=== PATIENT | female | born 2000 | race Caucasian/White ===

== ENCOUNTER 2021-08-24 14:34 | Emergency (ER) | payer MEDICAID ==
[2021-08-24] MEDS ORDERED: Sodium Chloride 0.9% 10 ML Syringe FLUSH PRN (14:59)
[2021-08-24] MEDS ORDERED: fentaNYL 100 MCG/2 ML SDV IVPUSH ONE ×2 (16:16→16:38)
--- NOTE | 2021-08-24 16:24 | CR ---
Left wrist: 3 views of the left wrist were obtained. Comparison: No prior wrist exam is available. Fracture is identified within the distal radius with mild comminution, articular extension as well as distal fragment being posteriorly angulated and posteriorly displaced. Fracture is also noted within the distal ulna. Diffuse soft tissue swelling is seen. Plate and screws are noted within the fifth metacarpal compatible with old injury. Impression: 1. Distal radial fracture showing articular extension and mildly comminuted with angulation and displacement. 2. Distal ulna fracture. 3. Other findings as noted above. Diagnostic code #3
[2021-08-24] MEDS ORDERED: Propofol 200 MG/20 ML SDV IVPUSH ONE (16:38)
[2021-08-24] MEDS ORDERED: Lactated Ringers 1,000 ML IV SCH (17:00)
--- NOTE | 2021-08-24 18:01 | EDM.PDOC ---
ED HPI GENERAL MEDICAL PROBLEM - General Chief Complaint: Upper Extremity Injury/Pain Stated Complaint: LEFT WRIST INJURY Time Seen by Provider: 08/24/21 16:14 - History of Present Illness INITIAL COMMENTS - FREE TEXT/NARRATIVE: 21-year-old female presents the emergency room with a left arm injury. Patient was stepping over on rope and tripped fell out on extended left upper extremity. She had immediate deformity to her wrist. This occurred roughly 2 hours prior to arrival. The patient complains of numbness in her hand and pretty significant discomfort when this incident. Patient denies any other injury associated with this most unfortunate event. Patient denies being she just had her period. Past medical history significant for cholecystectomy tonsillectomy adenoidectomy she has had left hand surgery and she has had a kidney stone. Left Wrist Pain Score (Numeric/FACES): 9 - Related Data Allergies Allergy/AdvReac Type Severity Reaction Status Date / Time Milk Containing Products AdvReac Nausea and Verified 08/24/21 16:09 Vomiting Home Meds: Home Meds Hydrocodone/Acetaminophen [HYDROcodone-Acetaminophen 5-325 MG] 1 - 2 each PO Q6H PRN #25 tab 08/24/21 [Rx] Past Medical History Genitourinary History: Reports: Renal Calculus Musculoskeletal History: Reports: Fracture Other Musculoskeletal History: to hand, - Past Surgical History HEENT Surgical History: Reports: Adenoidectomy, Tonsillectomy GI Surgical History: Reports: Cholecystectomy Musculoskeletal Surgical History: Reports: Other (See Below) Other Musculoskeletal Surgeries/Procedures:: surgery to left hand Social & Family History - Tobacco Use Tobacco Use Status *Q: Current Every Day Tobacco User Years of Tobacco use: 4 Packs/Tins Daily: 0.5 - Recreational Drug Use Recreational Drug Use: Yes Drug Use in Last 12 Months: Yes Recreational Drug Type: Reports: Marijuana/Hashish Recreational Drug Use Frequency: Daily Review of Systems - Review of Systems Review Of Systems: See Below Constitutional: Reports: No Symptoms Eyes: Reports: No Symptoms Ears: Reports: No Symptoms Nose: Reports: No Symptoms Mouth/Throat: Reports: No Symptoms Respiratory: Reports: No Symptoms Cardiovascular: Reports: No Symptoms GI/Abdominal: Reports: No Symptoms Genitourinary: Reports: No Symptoms Musculoskeletal: Reports: Arm Pain Skin: Reports: No Symptoms Neurological: Reports: No Symptoms ED EXAM, GENERAL - Physical Exam Exam: See Below Exam Limited By: No Limitations General Appearance: Alert, Moderate Distress (Mostly pain and a little anxiety) Head: Atraumatic, Normocephalic Neck: Normal Inspection, Supple, Non-Tender, Full Range of Motion Respiratory/Chest: No Respiratory Distress, Lungs Clear, Normal Breath Sounds Cardiovascular: Regular Rate, Rhythm, No Edema, No Murmur Extremities: Other (Patient has obvious dorsal angulation of the distal forearm. Her fingers are cool to touch and some numbness noted worse over the thumb and radial aspect compared to the ulnar aspect of the hand) Neurological: Alert, Oriented, Normal Cognition Course - Vital Signs Last Recorded V/S: Last Vital Signs Temp 36.4 C 08/24/21 15:37 Pulse 74 08/24/21 15:37 Resp 20 08/24/21 15:37 BP 104/89 08/24/21 15:37 Pulse Ox 98 08/24/21 15:37 - Orders/Labs/Meds Orders: Active Orders 24 hr Category Date Time Status Communication Order [RC] ASDIRECTED Care 08/24/21 14:59 Active Communication Order [RC] ASDIRECTED Care 08/24/21 14:59 Active Communication Order [RC] ROUTINE Care 08/24/21 14:59 Active Peripheral IV Care [RC] . DIRECTED Care 08/24/21 14:59 Active Wrist 2V Lt [CR] Stat Exams 08/24/21 17:18 Taken Lactated Ringers [Ringers, Lactated] 1,000 ml Med 08/24/21 17:00 Active IV ASDIRECTED Sodium Chloride 0.9% [Saline Flush] Med 08/24/21 14:59 Active 10 ml FLUSH ASDIRECTED PRN Durable Medical Equipment for Discharge [DME for Oth 08/24/21 18:01 Ordered Discharge] [COMM] Stat Peripheral IV Insertion Adult [OM.PC] Stat Oth 08/24/21 14:59 Ordered Medication Orders Lactated Ringer's (Ringers, Lactated) 1,000 mls @ 75 mls/hr IV ASDIRECTED LAUREL Last Admin: 08/24/21 17:21 Dose: 75 mls/hr Documented by: JEANETTE Sodium Chloride (Sodium Chloride 0.9% 10 Ml Syringe) 10 ml FLUSH ASDIRECTED PRN PRN Reason: Keep Vein Open Last Admin: 08/24/21 16:23 Dose: 10 ml Documented by: JEANETTE Meds: Medications Generic Name Dose Route Start Last Admin Trade Name Freq PRN Reason Stop Dose Admin Lactated Ringer's 1,000 mls @ 75 mls/hr 08/24/21 17:00 08/24/21 17:21 Ringers, Lactated IV 75 mls/hr ASDIRECTED LAUREL Administration Sodium Chloride 10 ml 08/24/21 14:59 08/24/21 16:23 Sodium Chloride 0.9% 10 Ml Syringe FLUSH 10 ml ASDIRECTED PRN Administration Keep Vein Open Discontinued Medications Generic Name Dose Route Start Last Admin Trade Name Freq PRN Reason Stop Dose Admin Hydrocodone Bitart/Acetaminophen 1 tab 08/24/21 18:31 08/24/21 18:43 Acetaminophen/Hydrocodone 325-5 Mg Tab PO 08/24/21 18:32 1 tab ONETIME ONE Administration Fentanyl 50 mcg 08/24/21 16:16 08/24/21 16:21 Fentanyl 100 Mcg/2 Ml Sdv IVPUSH 08/24/21 16:17 50 mcg ONETIME ONE Administration Fentanyl 100 mcg 08/24/21 16:38 08/24/21 17:22 Fentanyl 100 Mcg/2 Ml Sdv IVPUSH 08/24/21 16:39 100 mcg ONETIME ONE Administration Propofol 10 mg 08/24/21 16:38 08/24/21 17:21 Propofol 200 Mg/20 Ml Sdv IVPUSH 08/24/21 16:39 10 mg ONETIME ONE Administration - Re-Assessments/Exams Free Text/Narrative Re-Assessment/Exam: 08/24/21 18:26 X-ray is reviewed distal radius fracture with articular extension and mildly comminuted with angulation and displacement. Did review the x-rays with Dr. Niño who recommends we reduce this. I took care of the procedural sedation and any [facility] clearance practitioner did the reduction. Patient received propofol initially 20 mg followed by 10 mg until she was adequately sedated. This took 120 mg propofol. After 40 mg of propofol patient got 50 mcg of fentanyl and then as this was repeated towards the end. Patient had good anesthesia adequate sedation to get good repositioning and splinting of her fracture. The patient has had adequate time to clear the medication from her system she is feeling good at this time her hand warmed up and had good sensation. Discharge plans and postreduction x-rays reviewed with Dr. Niño, he would like to see the patient Saturday in the office anticipating either ORIF or repositioning under general anesthesia and casting. I discussed the anticipated plan with the patient and her significant other and they agree and will follow up as directed. Departure - Departure Time of Disposition: 18:29 Disposition: Home, Self-Care Clinical Impression: Fracture of left distal radius, Closed fracture of radius - Discharge Information Prescriptions: Hydrocodone/Acetaminophen [HYDROcodone-Acetaminophen 5-325 MG] 1 - 2 each PO Q6H PRN #25 tab PRN Reason: Pain Instructions: Moderate Conscious Sedation, Adult Referrals: PCP,Not In Area [Primary Care Provider] - Rubén Niño MD [Physician] - Forms: ED Department Discharge Additional Instructions: Return to the emergency room with any questions problems or worsening symptoms. Keep your arm elevated as much as you can ice it is much as you can as we discussed at least every 2 hours for 20 to 30 minutes while awake. I sent a prescription for hydrocodone to the [place] pharmacy in the [place] store take 1 or 2 every 6 hours as needed for pain. Follow-up with Dr. Niño Saturday call tomorrow to schedule an appointment. Wear the sling while up and about. While resting try and keep your arm elevated at least to shoulder height. Sepsis Event Note (ED) - Evaluation Sepsis Screening Result: No Definite Risk - Focused Exam Vital Signs: Vital Signs Temp Pulse Resp BP Pulse Ox 08/24/21 15:37 36.4 C 74 20 104/89 98 - My Orders Last 24 Hours: My Active Orders 08/24/21 14:59 Communication Order [RC] ASDIRECTED Communication Order [RC] ASDIRECTED Communication Order [RC] ROUTINE Peripheral IV Care [RC] . DIRECTED Sodium Chloride 0.9% [Saline Flush] 10 ml FLUSH ASDIRECTED PRN Peripheral IV Insertion Adult [OM.PC] Stat 08/24/21 17:00 Lactated Ringers [Ringers, Lactated] 1,000 ml IV ASDIRECTED 08/24/21 17:18 Wrist 2V Lt [CR] Stat 08/24/21 18:01 Durable Medical Equipment for Discharge [DME for Discharge] [COMM] Stat - Assessment/Plan Last 24 Hours: My Active Orders 08/24/21 14:59 Communication Order [RC] ASDIRECTED Communication Order [RC] ASDIRECTED Communication Order [RC] ROUTINE Peripheral IV Care [RC] . DIRECTED Sodium Chloride 0.9% [Saline Flush] 10 ml FLUSH ASDIRECTED PRN Peripheral IV Insertion Adult [OM.PC] Stat 08/24/21 17:00 Lactated Ringers [Ringers, Lactated] 1,000 ml IV ASDIRECTED 08/24/21 17:18 Wrist 2V Lt [CR] Stat 08/24/21 18:01 Durable Medical Equipment for Discharge [DME for Discharge] [COMM] Stat
[2021-08-24] MEDS ORDERED: Acetaminophen/HYDROcodone 325-5 MG Tab PO ONE (18:31)
--- NOTE | 2021-08-24 19:30 | CR ---
Left wrist: 2 views of the left wrist were obtained. Comparison: Prior left wrist study performed earlier the same day (3:24 PM). Significantly improved reduction is seen of previous fracture. Mild posterior displacement remains by about 5-7 mm. Angulation is minimally posterior. Ulnar styloid avulsion fracture is noted. Fiberglas cast or splint is present. Plate and screws remain within the shaft of the fifth metacarpal. Impression: 1. Improved reduction of previously described distal radial fracture. Diagnostic code #2
== END 2021-08-24 18:45 | disposition home or self-care (01) ==
LOC: JD.ED 14:34
DX: S52.592A Other fractures of lower end of left radius, initial encounter for closed fracture (principal); Z91.011 Allergy to milk products; Z72.0 Tobacco use; W01.0XXA Fall on same level from slipping, tripping and stumbling without subsequent striking against object, initial encounter
CPT/HCPCS: 25605; 73100; 73110; 99152; 99283; A9270; J2704; J3010; J7120

== ENCOUNTER 2022-11-21 02:45 | Inpatient (IN) | payer MEDICAID ==
[2022-11-21] MEDS ORDERED: Sodium Chloride 0.9% 10 ML Syringe FLUSH PRN (14:58)
[2022-11-21] MEDS ORDERED: Ondansetron 4 MG/2 ML SDV IVPUSH PRN (14:58)
[2022-11-21] MEDS ORDERED: Nalbuphine 10 MG/0.5 ML Syringe IVPUSH PRN (14:58)
[2022-11-21] MEDS ORDERED: Oxytocin/Lactated Ringers 10 UNIT/1,000 ML BAG IV SCH ×2 (15:00)
[2022-11-21] MEDS: Lactated Ringers 1,000 ML IV SCH ×2 (15:54→20:00)
[2022-11-21] MEDS ORDERED: ePHEDrine 50 MG/ML SDV IVPUSH PRN (19:48)
[2022-11-21] MEDS ORDERED: Bupivacaine/fentaNYL/NS 100 ML Bag EPIDUR PRN (19:48)
[2022-11-21] MEDS ORDERED: diphenhydrAMINE 50 MG/ML SDV IVPUSH PRN (19:48)
[2022-11-21] MEDS ORDERED: fentaNYL 100 MCG/2 ML SDV EPIDUR PRN (19:48)
[2022-11-21] MEDS ORDERED: Sodium Chloride 0.9% 10 ML Syringe FLUSH SCH (21:00)
[2022-11-22] MEDS ORDERED: Ropivacaine 0.2% PF 2 MG/ML 20 ML SDV ONE (02:00)
[2022-11-22] MEDS ORDERED: Benzocaine/Menthol 20%-0.5% Spray 78 GM Cannister TOP PRN (04:12)
[2022-11-22] MEDS ORDERED: Docusate Sodium 100 MG Cap PO PRN (04:12)
[2022-11-22] MEDS ORDERED: Hydrocortisone Acetate 25 MG Supp RECTAL PRN (04:12)
[2022-11-22] MEDS ORDERED: Magnesium Hydroxide 400 MG/5 ML Susp 30 ML Cup PO PRN (04:12)
[2022-11-22] MEDS ORDERED: Oxytocin/Lactated Ringers 10 UNIT/1,000 ML BAG IV SCH (04:12)
[2022-11-22] MEDS: Acetaminophen 325 MG Tab PO PRN ×2 (04:37→17:53)
[2022-11-22] MEDS: Witch Hazel Medicated Pads 40/Jar TOP PRN (07:37)
[2022-11-22] MEDS: Ibuprofen 600 MG Tab PO PRN ×3 (08:08→21:31)
[2022-11-22] MEDS: Prenatal Multivitamin with Calcium/Folic Acid/Iron Tab PO SCH (11:47)
[2022-11-23] MEDS: Ibuprofen 600 MG Tab PO PRN ×2 (05:19→15:04)
[2022-11-23] MEDS: Witch Hazel Medicated Pads 40/Jar TOP PRN (08:01)
[2022-11-23] MEDS: Prenatal Multivitamin with Calcium/Folic Acid/Iron Tab PO SCH (15:05)
== END 2022-11-23 16:52 | disposition home or self-care (01) | DRG 807 ==
LOC: JD.OB 02:45 → OBSVTOIN 11-22 02:45 → JD.OB 11-22 02:46
PROVIDERS: ADMIT Obstetrics & Gynecology; ATTEND Obstetrics & Gynecology
PROC: 10E0XZZ Delivery of Products of Conception, External Approach (ICD-10-PCS; principal; 2022-11-22)
PROC: 0KQM0ZZ Repair Perineum Muscle, Open Approach (ICD-10-PCS; 2022-11-22)
PROC: 10907ZC Drainage of Amniotic Fluid, Therapeutic from Products of Conception, Via Natural or Artificial Opening (ICD-10-PCS; 2022-11-22)
PROC: 3E033VJ Introduction of Other Hormone into Peripheral Vein, Percutaneous Approach (ICD-10-PCS; 2022-11-22)
PROC: 0UQMXZZ Repair Vulva, External Approach (ICD-10-PCS; 2022-11-22)
PROC: 3E0R3BZ Introduction of Anesthetic Agent into Spinal Canal, Percutaneous Approach (ICD-10-PCS; 2022-11-22)
PROC: 00HU33Z Insertion of Infusion Device into Spinal Canal, Percutaneous Approach (ICD-10-PCS; 2022-11-22)
DX: O70.1 Second degree perineal laceration during delivery (principal); Z37.0 Single live birth; O77.0 Labor and delivery complicated by meconium in amniotic fluid; Z3A.39 39 weeks gestation of pregnancy; Z87.891 Personal history of nicotine dependence; Z90.49 Acquired absence of other specified parts of digestive tract
CPT/HCPCS: 36415; 51702; 59025; 59409; 80306; 81001; 82947; 85025; 86592; 86850; 86900; 86901; A9270-GY; J2405; J2590; J2795; J3490; J7120

== ENCOUNTER 2025-03-24 09:27 | Inpatient (IN) | payer MEDICAID ==
[2025-03-24] MEDS ORDERED: Nalbuphine 10 MG/1 ML Vial IVPUSH PRN (19:08)
[2025-03-24] MEDS ORDERED: Misoprostol 25 MCG (1/4 of 100 MCG) Tab VAG PRN (19:08)
[2025-03-24] MEDS ORDERED: Ondansetron 4 MG/2 ML SDV IVPUSH PRN (19:08)
[2025-03-24] MEDS ORDERED: Sodium Chloride 0.9% 10 ML Syringe FLUSH PRN (19:08)
[2025-03-24] MEDS ORDERED: Oxytocin/0.9 % Sodium Chloride 30 UNIT/500 ML BAG IV SCH (19:15)
[2025-03-24] MEDS: Sodium Chloride 0.9% 10 ML Syringe FLUSH SCH (19:25)
[2025-03-24 19:32] LABS: BASOPHILS ABSOLUTE AUTO 0.0 K/mm3 (0.0-0.2); BASOPHILS PERCENT AUTO 0.4 % (0.0-1.0); EOSINOPHILS ABSOLUTE AUTO 0.3 K/mm3 (0.0-0.4); EOSINOPHILS PERCENT AUTO 2.8 % (0.0-6.0); IMMATURE GRAN ABSOLUTE AUTO 0.12 K/mm3 (0.00-0.05); IMMATURE GRAN PERCENT AUTO 1.2 % (0.0-0.4); LYMPHOCYTES ABSOLUTE AUTO 2.1 K/mm3 (1.0-4.8); LYMPHOCYTES PERCENT AUTO 21.4 % (24.0-44.0); MEAN PLATELET VOLUME 9.9 fl (9.4-12.3); MONOCYTES ABSOLUTE AUTO 0.9 K/mm3 (0.0-0.8); MONOCYTES PERCENT AUTO 9.3 % (0.0-8.0); NEUTROPHILS ABSOLUTE AUTO 6.4 K/mm3 (1.8-7.7); NEUTROPHILS PERCENT AUTO 64.9 % (41.0-71.0); NRBC ABSOLUTE 0.00 (0.00-0.02); NRBC PERCENT 0.0 % (0.0-0.2); PLATELET COUNT,PLT 224 K/mm3 (150-400); RED BLOOD CELL COUNT 3.49 M/mm3 (4.10-5.30); WHITE BLOOD CELL COUNT,WBC 9.91 K/mm3 (3.9-11.3)
[2025-03-24] MEDS: Oxytocin/0.9 % Sodium Chloride 30 UNIT/500 ML BAG IV SCH (20:07)
[2025-03-24] MEDS: Lactated Ringers 1,000 ML IV SCH (20:07)
[2025-03-24] MEDS ORDERED: ePHEDrine 50 MG/ML SDV IVPUSH PRN (22:20)
[2025-03-24] MEDS ORDERED: diphenhydrAMINE 50 MG/ML SDV IVPUSH PRN (22:20)
[2025-03-24] MEDS ORDERED: Ropivacaine 100 ML ONE (22:44)
[2025-03-24] MEDS: Ropivacaine 200 MG in Premix Bag 1 BAG EPIDUR PRN (23:04)
[2025-03-24] MEDS: Misoprostol 25 MCG (1/4 of 100 MCG) Tab VAG ONE (23:34)
[2025-03-25] MEDS ORDERED: Benzocaine/Menthol 20%-0.5% Spray 78 GM Cannister TOP PRN (14:04)
[2025-03-25] MEDS ORDERED: Witch Hazel Medicated Pads 40/Jar TOP PRN (14:04)
[2025-03-26] MEDS ORDERED: Ropivacaine 0.2% PF 2 MG/ML 20 ML SDV ONE ×2 (09:00)
== END 2025-03-26 13:00 | disposition home or self-care (01) | DRG 807 ==
LOC: JD.OB 09:27 → OBSVTOIN 03-25 09:27 → JD.OB 03-25 09:28
PROVIDERS: ADMIT Obstetrics & Gynecology; ATTEND Obstetrics & Gynecology
PROC: 10907ZC Drainage of Amniotic Fluid, Therapeutic from Products of Conception, Via Natural or Artificial Opening (ICD-10-PCS; principal; 2025-03-25)
PROC: 3E0R3BZ Introduction of Anesthetic Agent into Spinal Canal, Percutaneous Approach (ICD-10-PCS; principal; 2025-03-25)
PROC: 10E0XZZ Delivery of Products of Conception, External Approach (ICD-10-PCS; principal; 2025-03-25)
PROC: 0HQ9XZZ Repair Perineum Skin, External Approach (ICD-10-PCS; principal; 2025-03-25)
PROC: 3E033VJ Introduction of Other Hormone into Peripheral Vein, Percutaneous Approach (ICD-10-PCS; principal; 2025-03-25)
DX: O99.344 Other mental disorders complicating childbirth (principal); Z37.0 Single live birth; O70.0 First degree perineal laceration during delivery; Z3A.39 39 weeks gestation of pregnancy; Z88.8 Allergy status to other drugs, medicaments and biological substances; Z90.49 Acquired absence of other specified parts of digestive tract; Z98.890 Other specified postprocedural states; Z79.899 Other long term (current) drug therapy
CPT/HCPCS: 36415; 51702; 59025; 59409; 85025; 86592; 86850; 86900; 86901; A9270-GY; J2795; J7120; J7999